=== PATIENT | female | born 1965 | race Caucasian/White ===

== ENCOUNTER → 2023-01-27 08:39 | Outpatient (CLI) | payer BC, SELFPAY ==
--- NOTE | ~2023-01-27 | MR_ITS ---
MRI of the right shoulder Technique: Axial proton-density fat-sat images, coronal proton density fat-sat and T2 fat-sat images, and sagittal T1-weighted and T2 fat-sat images were acquired. Clinical History: Rotator cuff tear Findings: There is severe AC joint degenerative change. There is marrow edema about the AC joint, mil dly productive change. There is fluid extending from the joint superficially/superiorly from the join t space. Possible rupture of the superior acromioclavicular ligament. Coracoclavicular, coracoacromia l, and coracohumeral ligaments appear intact. There is a probable 3 mm linear articular surface low-grade partial tear at the very anterior, distal supraspinatus tendon insertion. No high-grade partial or full-thickness tear seen. There is mild sup raspinatus and infraspinatus tendinosis. Subscapularis tendon is intact with mild tendinosis. Tendon of the long head of the biceps is intact. No labral tear evident. Inferior glenohumeral ligament is intact. No degenerative change or effusion of the glenohumeral join t. No significant fluid distention of the subacromial/subdeltoid bursa. No muscle atrophy or edema. Impression: 3 mm linear low-grade articular surface partial tear at the anterior, distal supraspinatus tendon ins ertion. No high-grade partial or full-thickness rotator cuff tear seen. Advanced AC joint degenerative change. Possible rupture of the superior acromioclavicular ligament wi th fluid extending superiorly from the AC joint into the superior soft tissues. Reviewed, dictated and finalized at [facility]. [employer] Impression: 3 mm linear low-grade articular surface partial tear at the anterior, distal zamorano praspinatus tendon insertion. No high-grade partial or full-thickness rotator c uff tear seen. Advanced AC joint degenerative change. Possible rupture of the superior acromio clavicular ligament with fluid extending superiorly from the AC joint into the superior soft tissues.
== END ==
PROVIDERS: Visit Provider Orthopaedic Surgery
DX: S46.011A Strain of muscle(s) and tendon(s) of the rotator cuff of right shoulder, initial encounter (principal); T14.90XA Injury, unspecified, initial encounter
CPT/HCPCS: 73221